=== PATIENT | female | born 1945 | race Caucasian/White ===

== ENCOUNTER 2022-06-21 00:22 | Emergency (ER) | payer MEDICARE, SELFPAY ==
--- NOTE | ~2022-06-21 | XR_ITS ---
EXAMINATION: XR elbow LT min 3V DATE: 06/21/2022 03:18 INDICATION: Left elbow pain TECHNIQUE: Two views of the left elbow were obtained. COMPARISON: None. FINDINGS: No definite fracture is identified on this limited two view examination. 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 Posterior soft tissue swelling is noted near the proximal ulna. IMPRESSION: 1. No definite fracture identified on limited two view examination. Reviewed, dictated and finalized at location A.
--- NOTE | ~2022-06-21 | XR_ITS ---
EXAMINATION: XR shoulder LT min 2V INDICATION: Left shoulder pain, initial encounter TECHNIQUE: Four views of the left shoulder are submitted. COMPARISON: None FINDINGS: There is an acute, traumatic, closed, transverse fracture of the proximal humerus which anupam ears to involve the surgical neck. The greater tuberosity exists on a separate fracture fragment. The re is angulation at the fracture site with proximal migration of the humeral shaft. There is widening of the glenohumeral joint. No additional fracture is identified. IMPRESSION: 1. Comminuted overriding fracture of the left proximal humerus with the greater tuberosity on a separ ate fracture fragment. Reviewed, dictated and finalized at location A. IMPRESSION: 1. Comminuted overriding fracture of the left proximal humerus with the greater tuberosity on a separate fracture fragment.
[2022-06-21 00:23] VITALS: BP 171/65; PULSE 57; RESP 16
--- NOTE | 2022-06-21 02:32 | ED.GENADULT ---
HPI - General Adult General Chief complaint: Extremity Injury, Upper Stated complaint: Fall, Shoulder Deformity Time Seen by Provider: 06/21/22 01:11 Source: patient Mode of arrival: EMS Limitations: no limitations History of Present Illness HPI narrative: Patient is a 76-year-old female who presents the ED via EMS with report of left shoulder pain status post fall. Patient was at [facility] when she tripped going down the steps, falling forward. She reached her left arm out to try to catch herself and landed on her left side. She complains of pain to her left shoulder. She did sustain a small skin tear to her left elbow but denies significant pain. Deformity to L shoulder noted by EMS. Patient requested to come to our facility via EMS. No numbness, tingling. No head injury or LOC. Related Data Home Medications Medication Instructions Recorded Confirmed epinephrine 0.3 mg/0.3 mL 0.3 mg IM ONCE PRN Anaphylaxis 06/21/22 injection, auto-injector fexofenadine 180 mg tablet 180 mg PO DAILY 06/21/22 ([facility] Allergy) folic acid 1 mg tablet 1 mg PO DAILY 06/21/22 mesalamine 06/21/22 yfmvmpre-aha-G. coag-B. tablet PO 06/21/22 subtilis-inulin 1 billion cell-1 gram chew tab (Culturelle Probiotic-Multivit) sertraline 25 mg tablet 25 mg PO DAILY 06/21/22 06/21/22 valacyclovir 500 mg tablet 500 mg PO DAILY 06/21/22 vitamin E acetate 06/21/22 Allergies Allergy/AdvReac Type Severity Reaction Status Date / Time terfenadine [From Seldane] Allergy Rash Verified 06/21/22 00:39 tree nut Allergy Anaphylaxis Verified 06/21/22 00:39 Review of Systems Review of Systems: CONSTITUTIONAL: Denies fever, chills, or sweats. SKIN: Reports skin tear to left elbow. MUSCULOSKELETAL: Reports left shoulder pain and deformity. NEUROLOGIC: Denies GIL, LOC, tingling, numbness, or weakness. All systems reviewed & are unremarkable except as noted in HPI and below PMFSH Past Medical History Medical History (Updated 06/21/22 @ 03:31 by Peggy Dwyer PA-C) History of Cool's esophagus History of ulcerative colitis Surgical History Surgical History (Updated 06/21/22 @ 02:36 by Peggy Dwyer PA-C) No pertinent past surgical history Social History Social History (Updated 06/21/22 @ 02:37 by Peggy Dwyer PA-C) Smoking status: Never smoker Exam Narrative: GENERAL: Well appearing, well-nourished, non-toxic, in no acute distress. HEAD: Normocephalic, atraumatic. No signs of trauma. NECK: Supple. No adenopathy, no masses. RESPIRATORY: Airway patent, respirations nonlabored. Clear to auscultation bilaterally, no rales, rhonchi, wheezing. CARDIOVASCULAR: Regular rate and rhythm without murmurs, rubs, or gallops. Radial pulses 2+ and equal bilaterally. MUSCULOSKELETAL: Limited ROM of L shoulder due to pain. Pain with any movement/ROM of L shoulder. Tenderness to palpation over anterior L shoulder, with seemingly displaced humeral head deformity. Sensation grossly intact. Tenderness over lateral epicondyle of elbow. No significant tenderness over medial epicondyle or olecranon. Small skin tear to ventral L elbow. SKIN: Warm, dry, normal color. No rashes. NEURO: A&O X3. Speech clear. Cranial nerves II-XII grossly intact. Steady gait. No ataxic movements. PSYCHIATRIC: Appropriate mood and affect. Normal interaction. Course Consultations Consultation #1: Discussed case with Dr. Foley, Ortho on-call, he reviewed XR images. Advised shoulder immobilizer and outpatient follow-up with him next week. Date: 06/21/22 Vital Signs Vital signs: Vital Signs Pulse Rate 57 L 06/21/22 00:23 Respiratory Rate 16 06/21/22 00:23 Blood Pressure 171/65 H 06/21/22 00:23 Pulse Rate 57 L 06/21/22 00:23 Respiratory Rate 16 06/21/22 00:23 Blood Pressure 171/65 H 06/21/22 00:23 Medical Decision Making MDM Narrative Medical decision making narrative: Patient presented
--- NOTE | 2022-06-21 03:07 | PC.NURSE ---
Transferred pt care to Maximilian Santizo RN
[2022-06-21 05:08] VITALS: BP 154/71; PULSE 64; RESP 18; O2SAT 99
== END 2022-06-21 04:15 | disposition home or self-care (01) ==
PROVIDERS: Emergency Provider Emergency Medicine
DX: S42.252A Displaced fracture of greater tuberosity of left humerus, initial encounter for closed fracture (principal); K22.70 Barrett's esophagus without dysplasia; K51.90 Ulcerative colitis, unspecified, without complications; W10.9XXA Fall (on) (from) unspecified stairs and steps, initial encounter
CPT/HCPCS: 73030; 73080; 96365; 99284; J0131